=== PATIENT | male | born 1980 | race Caucasian/White ===

== ENCOUNTER 2023-11-22 11:34 | Emergency (ER) | payer MEDICAID ==
[~2023-11-22] VITALS: Ht 167.6 cm; Wt 73.0 kg
[2023-11-22 11:52] VITALS: BP 103/76; PULSE 89; RESP 16; TEMP 97.9; O2SAT 99
[2023-11-22] MEDS ORDERED: LIDOCAINE HCL/PF 1% 10 MG/ML 5ML VIAL INFIL ONE (14:30)
[2023-11-22] MEDS ORDERED: BACITRACIN ZINC OINT UDPKT TOP ONE (14:30)
[2023-11-22] MEDS: TETANUS, DIPHTHERIA, PERTUSSIS VAC/PF 0.5ML (>10YR OLD) IM ONE (14:47)
[2023-11-22] MEDS ORDERED: IBUP-2029 MT (16:10)
== END 2023-11-22 16:32 | disposition home or self-care (01) ==
LOC: ER 11:34
DX: S61.210A Laceration without foreign body of right index finger without damage to nail, initial encounter (principal); W26.8XXA Contact with other sharp object(s), not elsewhere classified, initial encounter; Y93.89 Activity, other specified; Y92.89 Other specified places as the place of occurrence of the external cause; Y99.8 Other external cause status
CPT/HCPCS: 73130; 90715; 12002; 90471; 99283; J3490; Z7610 ×3

== ENCOUNTER 2023-11-26 09:46 | Emergency (ER) | payer MEDICAID ==
[~2023-11-26] VITALS: Ht 167.6 cm; Wt 78.0 kg
[~2023-11-26 09:46] MED LIST: IBUP-2029 MT
[2023-11-26 09:47] VITALS: BP 119/72; TEMP 98.2; O2SAT 98
[2023-11-26 09:51] VITALS: PULSE 74; RESP 18
[2023-11-26] MEDS ORDERED: CEPH500T MT (11:26)
[2023-11-26] MEDS: CEPHALEXIN 250MG CAPSULE PO ONE (11:51)
== END 2023-11-26 11:50 | disposition home or self-care (01) ==
LOC: ER 09:46
DX: S61.210D Laceration without foreign body of right index finger without damage to nail, subsequent encounter (principal); Z98.890 Other specified postprocedural states; X58.XXXD Exposure to other specified factors, subsequent encounter
CPT/HCPCS: 99283

== ENCOUNTER 2023-12-01 08:47 | Emergency (ER) | payer MEDICAID ==
[~2023-12-01] VITALS: Ht 175.3 cm; Wt 81.0 kg
[~2023-12-01 08:47] MED LIST changes: +CEPH500T MT
[2023-12-01 08:50] VITALS: O2SAT 98
[2023-12-01 10:31] VITALS: BP 128/78; PULSE 78; RESP 20; TEMP 98.1
== END 2023-12-01 10:35 | disposition home or self-care (01) ==
LOC: ER 08:47
DX: S61.210D Laceration without foreign body of right index finger without damage to nail, subsequent encounter (principal); Z98.890 Other specified postprocedural states; X58.XXXD Exposure to other specified factors, subsequent encounter
CPT/HCPCS: 99281; Z7610